=== PATIENT | male | born 1950 | race Caucasian/White ===

== ENCOUNTER 2023-03-20 13:00 | Outpatient (RCR) | payer MEDICARE, BC, SELFPAY | END 2023-07-18 23:59 | disposition home or self-care (01) | PROVIDERS: PCP Family Medicine; Visit Provider Student in an Organized Health Care Education/Training Program | DX: N39.41 Urge incontinence (principal); Z51.89 Encounter for other specified aftercare | CPT/HCPCS: 97110; 97140; 97162 ==

== ENCOUNTER 2023-12-14 09:00 | Outpatient (RCR) | payer MEDICARE, BC, SELFPAY | END 2024-04-12 23:59 | disposition home or self-care (01) | PROVIDERS: PCP Family Medicine; Visit Provider Student in an Organized Health Care Education/Training Program | DX: U09.9 Post COVID-19 condition, unspecified (principal); M62.89 Other specified disorders of muscle; R27.8 Other lack of coordination; R39.15 Urgency of urination; R39.12 Poor urinary stream; R39.198 Other difficulties with micturition; R35.0 Frequency of micturition; R35.1 Nocturia; Z51.89 Encounter for other specified aftercare | CPT/HCPCS: 97110; 97140; 97162; 97165; 97535 ==

== ENCOUNTER 2024-10-29 08:42 | Outpatient (CLI) | payer MEDICARE, BC, SELFPAY | END 2024-10-29 08:43 | disposition home or self-care (01) | LOC: OP CLINIC 08:45 | PROVIDERS: PCP Family Medicine; Visit Provider Surgery | DX: K52.9 Noninfective gastroenteritis and colitis, unspecified (principal); K64.8 Other hemorrhoids; K57.30 Diverticulosis of large intestine without perforation or abscess without bleeding; K64.4 Residual hemorrhoidal skin tags; K44.9 Diaphragmatic hernia without obstruction or gangrene; R53.82 Chronic fatigue, unspecified | CPT/HCPCS: 00813; 43239; 45380; 88305; 99100 ==